=== PATIENT | male | born 1965 | race Two or more races ===

== ENCOUNTER 2018-10-02 22:34 | Inpatient (IN) | payer MEDICAID ==
[~2018-10-02] VITALS: Ht 160 cm; Wt 77.1 kg
--- NOTE | 2018-10-02 22:40 | NUR ---
TO BED 3 BIB PARAMEDICS C/O NON RADIATING CHEST PAIN 09/11 DESCRIBES PAIN BURNING AND PRESSURE. PT REPORTS TAKING 2 OF HIS OWN NITRO SL AND PT WAS GIVEN NITRO X3 BY EMS SOLDERING MACHINE SETTER. PT AAOX4 NO ACUTE DISTRESS NOTED, RESP EVEN AND UNLABORED. PLACE PT ON CARDIAC MONITORING, CONTINUOUS POX. PENDING ER MD ORTIZ.
[2018-10-02 23:04] LABS: BASOPHILS # (AUTO) 0.1 /CMM (0.0-0.2); BASOPHILS % (AUTO) 0.8 % (0.0-2.0); EOSINOPHILS % (AUTO) 1.1 % (0.0-6.0); HEMATOCRIT 46 % (39-51); LYMPHOCYTES # (AUTO) 2.4 /CMM (0.8-4.8); LYMPHOCYTES % (AUTO) 25.5 % (20.0-44.0); MEAN CORPUSCULAR HGB CONC 35 g/dl (31.0-36.0); MEAN CORPUSCULAR VOLUME 90 fL (80-96); MONOCYTES # (AUTO) 0.6 /CMM (0.1-1.30); MONOCYTES % (AUTO) 6.8 % (2.0-12.0); NEUTROPHILS # (AUTO) 6.2 /CMM (1.8-8.9); NEUTROPHILS % (AUTO) 65.8 % (43.0-81.0); PLATELET COUNT (AUTO) 200 /CMM (150-450); RED BLOOD CELL COUNT(AUTO) 5.13 MIL/uL (4.5-6.0); WHITE BLOOD COUNT (AUTO) 9.4 K/uL (4.3-11.0)
[2018-10-02 23:12] LABS: CALCIUM, SERUM 9.1 mg/dL (8.5-10.1); CARBON DIOXIDE 25 mmol/L (21-32); CHLORIDE 106 mmol/L (98-107); CREATININE 0.9 mg/dL (0.6-1.3); GLUCOSE 195 mg/dL (74-106); POTASSIUM 4.4 mmol/L (3.5-5.1); SODIUM SERUM 141 mmol/L (136-145); UREA NITROGEN, BLOOD 16 mg/dL (7-18)
--- NOTE | 2018-10-02 23:28 | NUR ---
TOMAS (SON) NUMBER FOR CONTACT:
[2018-10-03] VITALS (7 sets, daily range): BP systolic 113–134; BP diastolic 69–78
--- NOTE | 2018-10-03 00:18 | NUR ---
LAB AND XRAY RESULTS RECEIVED. DAYANARA KHANNA MADE AWARE.
[2018-10-03] MEDS ORDERED: MORPHINE SULFATE INJ 2 MG/ML DISP.SYRIN ONE (00:34)
[2018-10-03] MEDS ORDERED: ONDANSETRON HCL/PF 4 MG/2 ML VIAL ONE (00:34)
[2018-10-03] MEDS ORDERED: ASPIRIN 81 MG TAB.CHEW PO ONE (01:00)
[2018-10-03] MEDS ORDERED: IV NS 0.9% 500 ML BAG IV ONE (01:00)
[2018-10-03] MEDS ORDERED: MORPHINE SULFATE INJ 2 MG/ML DISP.SYRIN IV ONE (01:00)
[2018-10-03] MEDS ORDERED: ONDANSETRON HCL/PF - ER 4 MG/2 ML VIAL IV ONE (01:00)
[2018-10-03] MEDS ORDERED: ASPIRIN 81 MG TAB.CHEW ONE (01:19)
--- NOTE | 2018-10-03 02:39 | NUR ---
REPORT CALLED TO NARCOTICS DETECTIVE GIL. WILL TRANSPORT PT VIA ACLS PROTOCOL.
[2018-10-03] MEDS ORDERED: HYDROCODONE/APAP 5/325MG 1 EACH TABLET PO PRN (03:00)
[2018-10-03] MEDS ORDERED: MORPHINE SULFATE INJ 2 MG/ML DISP.SYRIN IV PRN (03:00)
[2018-10-03] MEDS ORDERED: MAGNESIUM HYDROXIDE 30 ML UDC PO PRN (03:00)
[2018-10-03] MEDS ORDERED: ACETAMINOPHEN 325 MG TABLET PO PRN (03:00)
[2018-10-03] MEDS ORDERED: ONDANSETRON HCL/PF 4 MG/2 ML VIAL IVP PRN (03:00)
[2018-10-03] MEDS ORDERED: NITROGLYCERIN 0.4 MG/TAB BOTTLE SL PRN ×2 (03:00→09:30)
[2018-10-03] MEDS ORDERED: MAG HYDROX/AL HYDROX/SIMETH 30 ML UDC PO PRN (03:00)
[2018-10-03] MEDS ORDERED: HYDROCODONE/APAP 10/325MG 1 EA TABLET PO PRN (03:00)
[2018-10-03] MEDS ORDERED: TEMAZEPAM 15 MG CAPSULE PO PRN (03:00)
--- NOTE | 2018-10-03 03:00 | NUR ---
UTILITY CLERKSAFETY MANAGER NOTES ADMITTED FROM ER THIS 52 Y.O. MALE,ARGENTINE,UNDERSTAND A BIT OF [place],A/O X4,ABLE TO AMBULATE WITH STEADY GAIT.SALINE LOCK RIGHT HAND INTACT AND PATENT.WITH KNOWN HX OF OPEN HEART SURGERY 7 YEARS AGO.S/P ANGIOGRAM FOUR MONTHS,SCAR NOTED ON LEFT GROIN.WITH CHEST PAIN 3/10 ON PAIN SCALE,TOLERABLE.INSTRUCTED NPO FOR BREAKFAST TILL SEEN BY NUCLEAR TEST TECHNICIAN IN THE MORNING.WITH HOME AT BEDSIDE,PER PATIENT,WILL TAKE HOME BY THIS MORNING.SR 68 ON TELE MONITOR.CALL LIGHT IN REACH,NEEDS ANTICIPATED.
[2018-10-03] MEDS ORDERED: RIVA10TA PO (04:38)
[2018-10-03] MEDS ORDERED: ISOS60TA4 PO (04:38)
[2018-10-03] MEDS ORDERED: LISI-607 PO (04:38)
[2018-10-03] MEDS ORDERED: NITR0.4T SL (04:38)
[2018-10-03] MEDS ORDERED: METF-442 PO (04:38)
[2018-10-03] MEDS ORDERED: GABA-534 PO (04:38)
[2018-10-03] MEDS ORDERED: CARV3.122 PO (04:38)
--- NOTE | 2018-10-03 06:36 | NUR ---
EX ASSISTANT/PROGRAM DIRECTOR NOTES SLEEPING,CHEST PAIN SUBSIDED,IN NO ACUTE DISTRESS,WILL BE NPO FOR BREAKFAST TILL SEEN BY CARDIO.IN NO ACUTE DISTRESS.WILL ENDORSE TO DAY NURSE FOR AELTHA.
[2018-10-03 07:35] LABS: CHOLESTEROL 158 mg/dL (<200); HDL CHOLESTEROL 22 mg/dL (40-60); LDL 121 mg/dL (0-99); THYROID STIMULATING HORMONE 2.251 uIU/mL (0.358-3.74); TRIGLYCERIDES 196 mg/dL (30-150)
--- NOTE | 2018-10-03 07:48 | NUR ---
MS RN NOTES RECEIVED PATIENT IN BED, ALERT AND AWAKE ORIENTED X3. DENIES ANY C/O PAIN NOR DISCOMFORT AT THIS TIME. NPO STATUS TILL SEEN BY SCHEDULING REPRESENTATIVE. BED IN LOWEST POSITION. CALL LIGHT WITHIN REACH. RESTING COMFORTABLY IN BED. LEFT HAND #18 INTACT AND PATENT. BED SIDERAILS UP X2. ACTIVITY RONNIE.
[2018-10-03] MEDS: ASPIRIN 81 MG TAB.CHEW PO SCH (09:00)
[2018-10-03] MEDS ORDERED: RIVAROXABAN 10 MG TABLET PO SCH ×2 (09:30→17:00)
[2018-10-03] MEDS: GABAPENTIN 300 MG CAPSULE PO SCH ×3 (09:30→17:47)
[2018-10-03] MEDS: LISINOPRIL (5MG) 5 MG TABLET PO SCH (09:30)
[2018-10-03] MEDS: CARVEDILOL 3.125 MG TABLET PO SCH ×2 (09:30→17:51)
--- NOTE | 2018-10-03 09:50 | NUR ---
ICU/RN: AT BEDSIDE. CHECKLIST COMPLETED. NKA. PT FRENCH SPEAKING. DISCUSSED/REVIEWED CTA PROCEDURE. CONSENT SIGNED AND IN CHART. PER ACLS GUIDELINES TRANSFERRED PT OR CT. VSS, NO DISTRESS
[2018-10-03] MEDS: METFORMIN 500 MG TABLET PO SCH (10:00)
[2018-10-03] MEDS: ISOSORBIDE MONONITRATE (30MG) 30 MG TAB.SR.24H PO SCH (10:00)
--- NOTE | 2018-10-03 10:00 | NUR ---
MS RN NOTES HELD ALL 9AM MEDS DUE TO PATIENT NPO STATUS AND HELD GLUCOPHAGE 10AM DOSE DUE TO PATIENT SCHEDULED FOR CT ANGIO HEART 3D IMAGE.
[2018-10-03] MEDS ORDERED: CT SWABBABLE VALVE TRANS SET 1 EA INFUS.SET MC ONE (10:02)
[2018-10-03] MEDS ORDERED: IOHEXOL-350 100 ML VIAL IV ONE (10:02)
[2018-10-03] MEDS ORDERED: IV NS 0.9% 250 ML IV ONE (10:02)
--- NOTE | 2018-10-03 10:04 | NUR ---
MS RN NOTES PATIENT OFF FROM UNIT FOR CT ANGIO HEART 3D/IMAGE.
[2018-10-03] MEDS ORDERED: NITROGLYCERIN 0.4 MG/TAB BOTTLE ONE (10:13)
[2018-10-03] MEDS ORDERED: METOPROLOL TARTRATE INJ 5 MG/5 ML AMPUL ONE ×2 (10:13→10:26)
--- NOTE | 2018-10-03 11:25 | NUR ---
ICU/RN: RETURNED PT BACK TO ROOM. REPORT ENDORSED TO JENNIFER RODRIGUEZ. VSS. NO S/S OF DISCOMFORT. PT RESTING COMFORTABLY IN BED.
--- NOTE | 2018-10-03 11:30 | NUR ---
MS RN NOTES BS CHECKED DUE TO PATIENT WITH DM AND NPO STATUS. CURRENT BS 118MG/DL, A1C STILL PENDING.
--- NOTE | 2018-10-03 11:30 | NUR ---
MS RN NOTES PATIENT RETURNED FROM CTA, DENIES ANY C/O PAIN NOR DISCOMFORT. RESTING COMFORTABLY IN BED. ABLE TO VERBALIZE NEEDS.
--- NOTE | 2018-10-03 11:36 | NUR ---
MS RN NOTES RECEIVED INSTRUCTIONS FROM MARTINE RODRIGUEZ TO HOLD METFORMIN (GLUCOPHAGE) X2 DAYS DUE TO USE OF IV CONTRAST.
--- NOTE | 2018-10-03 19:45 | NUR ---
MS RN NOTES RECEIVED ON BED SLEEPING,AROUSABLE TO VERBAL STIMULI,BREATHING NORMAL,SALINE LOCK RIGHT RIGHT HAND INTACT AND PATENT.WILL MONITOR FOR CHEST PAIN,CALL LIGHT IN REACH,NEEDS ANTICIPATED.
--- NOTE | 2018-10-03 19:48 | NUR ---
MS RN CLOSING NOTES PATIENT RESTING COMFORTABLY IN BED. DENIES ANY C/O PAIN NOR DISCOMFORT AT THIS TIME. SO S/S OF REPSIRATORY DISTRESS. DENIES ANY CHEST PAIN NOR LEG PAIN DURING THE SHIFT. CALL LIGHT WITHIN REACH. BRP WITH STEADY GAIT. BED IN LOWEST POSITION. BED SIDERAILS UP X2.
--- NOTE | 2018-10-04 06:46 | NUR ---
MS RN NOTES SLEPT WELL AT NIGHT.NO COMPLAINTS OF CHEST PAIN.ABLE TO AMBULATE IN THE HALLWAYS.IN NO ACUTE DISTRESS.WILL ENDORSE TO DAY NURSE FOR ALETHA.
--- NOTE | 2018-10-04 07:30 | NUR ---
MS RN OPENING NOTES RECEIVED PATIENT AMBULATING AROUND HALLWAY WITH STEADY GAIT. DENIES ANY C/O PAIN NOR DISCOMFORT. NO SOB. DENIES ANY C/O HEADACHE, CHEST PAIN NOR DIZZINESS. REMINDED PATIENT TO TAKE FREQUENT REST PERIODS AFTER AMBULATING IN UNIT AND TO CALL NURSE WHEN IN NEED.
[2018-10-04 07:44] LABS: BASOPHILS % (AUTO) 0.6 % (0.0-2.0); EOSINOPHILS % (AUTO) 1.4 % (0.0-6.0); HEMATOCRIT 48 % (39-51); HEMOGLOBIN 16.6 g/dL (13.5-17.5); LYMPHOCYTES # (AUTO) 1.7 /CMM (0.8-4.8); LYMPHOCYTES % (AUTO) 23.6 % (20.0-44.0); MEAN CORPUSCULAR HGB CONC 34 g/dl (31.0-36.0); MEAN CORPUSCULAR VOLUME 89 fL (80-96); MONOCYTES # (AUTO) 0.6 /CMM (0.1-1.30); MONOCYTES % (AUTO) 8.6 % (2.0-12.0); NEUTROPHILS # (AUTO) 4.8 /CMM (1.8-8.9); NEUTROPHILS % (AUTO) 65.8 % (43.0-81.0); PLATELET COUNT (AUTO) 186 /CMM (150-450); RED BLOOD CELL COUNT(AUTO) 5.42 MIL/uL (4.5-6.0); WHITE BLOOD COUNT (AUTO) 7.3 K/uL (4.3-11.0)
[2018-10-04 07:55] LABS: CALCIUM, SERUM 9.4 mg/dL (8.5-10.1); CREATININE 0.9 mg/dL (0.6-1.3); MAGNESIUM 1.9 mg/dL (1.8-2.4); PHOSPHORUS 4.2 mg/dL (2.5-4.9); POTASSIUM 3.9 mmol/L (3.5-5.1)
[2018-10-04 08:00] VITALS: BP 118/73
--- NOTE | 2018-10-04 08:09 | NUR ---
MS RN NOTES SEEN BY DR. WHITE AND DISCUSSED RESULTS OF CTA.
[2018-10-04] MEDS: METFORMIN 500 MG TABLET PO SCH (09:00)
[2018-10-04] MEDS: ASPIRIN 81 MG TAB.CHEW PO SCH (09:13)
[2018-10-04] MEDS: GABAPENTIN 300 MG CAPSULE PO SCH ×2 (09:13→12:34)
[2018-10-04] MEDS: LISINOPRIL (5MG) 5 MG TABLET PO SCH (09:13)
[2018-10-04] MEDS: CARVEDILOL 3.125 MG TABLET PO SCH (09:15)
[2018-10-04 09:16] VITALS: BP 118/73
[2018-10-04] MEDS: ISOSORBIDE MONONITRATE (30MG) 30 MG TAB.SR.24H PO SCH (09:16)
--- NOTE | 2018-10-04 09:16 | NUR ---
MS RN NOTES HELD GLUCOPHAGE, PATIENT RECEIVED CONTRAST YESTERDAY.
--- NOTE | 2018-10-04 13:40 | NUR ---
MS RN CLOSING/DISCHARGE NOTES PATIENT WITH ORDER FOR DISCHARGE TO HOME. ALERT AND ORIENTED X4. DENIES AN C/O PAIN NOR DISCOMFORT. IN NO APPARENT DISTRESS. PATIENT AMBULATORY WITH STEADY GAIT. DURING THE SHIFT PATIENT AMBULATES AROUND UNIT. DISCHARGE INSTRUCTIONS AND DISCHARGE PACKET GIVEN TO PATIENT AND AND VERBALIZES UNDERSTANDING. ALL BELONGINGS ACCOUNTED FOR. PATIENT VERY EXCITED TO GO HOME. SALINE LINE REMOVED FROM RIGHT AC AND LEFT HAND WITH CATHETER TIP INTACT WITH GAUZE DRESSING APPLIED. PATIENT LEFT IN STABLE CONDITION VIA PRIVATE CAR.
== END 2018-10-04 13:40 | disposition home or self-care (01) | DRG 198 ==
LOC: ER 22:34 → TELE 10-03 02:28 → MED 10-03 10:00
PROVIDERS: ADMIT Hospitalist; ATTEND Hospitalist
DX: I25.10 Atherosclerotic heart disease of native coronary artery without angina pectoris (principal); E11.51 Type 2 diabetes mellitus with diabetic peripheral angiopathy without gangrene; E78.5 Hyperlipidemia, unspecified; E86.0 Dehydration; I10 Essential (primary) hypertension; Z95.1 Presence of aortocoronary bypass graft; Z96.642 Presence of left artificial hip joint; Z98.61 Coronary angioplasty status; Z87.891 Personal history of nicotine dependence
CPT/HCPCS: 36415; 71045-TC; 75574; 80048-TC; 80061-TC; 82962-TC; 83735-TC; 84100-TC; 84443-TC; 84484-TC; 85025-TC; 87081-TC; 93307-TC; G0378; J2270; J2405; J3490; J7040; J7050; Q9967